=== PATIENT | male | born 1960 | race Caucasian/White ===

== ENCOUNTER → 2017-08-10 16:56 | Outpatient (CLI) | payer OTHER, SELFPAY ==
--- NOTE | 2017-08-10 | IMM_PTH ---
PATIENT: SHERIN CALDWELL LOC: [facility] U#:[id number] AGE/SX: 64/M ROOM: RE08/10/[address]: Dr. Bon Salazar MD : 1960 BED: DIS: SPEC #: [id number] RECD: 08/12/17 10:52 STATUS: YESSICA REOsmin #: [id number] ALFONSO: 08/10/17 00:[address]: Bon Salazar DEPT: IMMUNOHISTOCHEMISTRY RECD BY: Jana Mendoza ENTERED: 08/12/17 10:53 SP TYPE: IMMUNO OTHR DR: Dr. Alfonso Torres MD Tissues: A - PROSTATE RIGHT Procedures: P40 (add) 34BE12 (initial) PHYSICIAN & INSTITUTION [place] [address] SPECIMEN INFORMATION: Tissue Source: A - Right prostate, apex, core biopsy Clinical Info: Elevated PSA Specimen Number: [id number] CPT code: 78471, 03852 METHODOLOGY: Deparaffinized sections of prefer/formalin-fixed tissue or PAP/DQ stained slides are incubated with monoclonal/polyclonal antibodies/oligonucleotide probes. Localization is made via biotin free immunoperoxidase method. Appropriate controls are performed and reacted as expected. Results on target cell population are indicated in the following table: RESULTS: ANTIBODY / CLONE RESULT Block A P40 (BC28) positive 34BE12 (34BE12) positive These tests were developed and their performance characteristics determined by [facility]. They may not have been cleared or approved by the U.S. Food and Drug Administration. The FDA has determined that such clearance or approval is not necessary. INTERPRETATION: A. Right prostate, apex, core biopsy: Negative for malignancy. SJ:yuval 08/12/17
--- NOTE | 2017-08-10 08:00 | PROSBIL_PTH ---
PATIENT: SHERIN CALDWELL LOC: [facility] U#:[id number] AGE/SX: 64/M ROOM: RE08/10/[address]: Dr. Bon Salazar MD : 1960 BED: DIS: SPEC #: [id number] RECD: 08/11/17 11:01 STATUS: YESSICA JALIL #: [id number] ALFONSO: 08/10/17 08:[address]: Bon Salazar DEPT: SURGICAL PATHOLOGY RECD BY: Edwin Lilly ENTERED: 08/11/17 11:02 SP TYPE: PROST BX TATYANA DR: Dr. Alfonso Torres MD Tissues: A - PROSTATE RIGHT B - PROSTATE RIGHT C - PROSTATE RIGHT D - PROSTATE LEFT E - PROSTATE LEFT F - PROSTATE LEFT Procedures: PROSTATE BX HEADER OPERATION: Prostate biopsy PRE-OP DIAGNOSIS: Elevated PSA TISSUE SUBMITTED: A - Right apex, B - Right mid, C - Right base, D - Left apex, E - Left mid, F - Left base MICROSCOPIC DIAGNOSIS A. Right prostate, apex, core biopsy: Prostatic tissue, negative for malignancy. Focal chronic inflammation. See comment. B. Right prostate, mid, core biopsy: Prostatic tissue, negative for malignancy. Focal atrophy. C. Right prostate, base, core biopsy: Focal high-grade prostatic intraepithelial neoplasia (HGPIN). Focal mild acute and chronic inflammation. D. Left prostate, apex, core biopsy: Prostatic tissue, negative for malignancy. Focal atrophy. E. Left prostate, mid, core biopsy: Prostatic tissue, negative for malignancy. Focal atrophy and chronic inflammation. F. Left prostate, base, core biopsy: Prostatic tissue, negative for malignancy. Focal atrophy and chronic inflammation. SJ:yuval 08/12/17 COMMENT A. Immunohistochemistry ([id number]) supports the above diagnosis. Case has been reviewed in consultation with Dr. Curtis who concurs with the above diagnosis. IDC:AM MICROSCOPIC DESCRIPTION Slides are reviewed. GROSS DESCRIPTION A - Received is one container designated prostate, right apex. The specimen consists of two elongated fragments of light amaya-white soft tissue measuring 1.5 and 2 cm in length and 0.1 cm in diameter. The specimen is totally submitted in one cassette. B - Received is one container designated prostate, right mid. The specimen consists of two elongated fragments of light amaya-white soft tissue measuring 1.3 and 1.5 cm in length and 0.1 cm in diameter. The specimen is totally submitted in one cassette. C - Received is one container designated prostate, right base. The specimen consists of two elongated fragments of light amaya-white soft tissue each measuring 1.5 cm in length and 0.1 cm in diameter. The specimen is totally submitted in one cassette. D - Received is one container designated prostate, left apex. The specimen consists of two elongated fragments of light amaya-white soft tissue measuring 1 and 1.5 cm in length and 0.1 cm in diameter. The specimen is totally submitted in one cassette. E - Received is one container designated prostate, left mid. The specimen consists of two elongated fragments of light amaya-white soft tissue each measuring 2 cm in length and 0.1 cm in diameter. The specimen is totally submitted in one cassette. F - Received is one container designated prostate, left base. The specimen consists of two elongated fragments of light amaya-white soft tissue each measuring 1.5 cm in length and 0.1 cm in diameter. The specimen is totally submitted in one cassette. / SJ:rg 08/11/17 TC:5 CPT: 67309 x6
== END ==
PROVIDERS: Family Provider Internal Medicine; PCP Internal Medicine; Visit Provider Urology
DX: R97.20 Elevated prostate specific antigen [PSA] (principal)
CPT/HCPCS: 88305; 88341; 88342; G0416

== ENCOUNTER → 2018-02-22 06:21 | Outpatient (CLI) | payer OTHER, SELFPAY ==
[2018-02-22 07:24] LABS: PSA,Total- Diagnostic 3.17 ng/mL (0.0-4.0)
== END ==
PROVIDERS: Family Provider Internal Medicine; PCP Internal Medicine; Referring Provider Urology; Visit Provider Urology
DX: R97.20 Elevated prostate specific antigen [PSA] (principal)
CPT/HCPCS: 36415; 84153

== ENCOUNTER 2022-10-26 16:45 | Emergency (ER) | payer OTHER, SELFPAY ==
[2022-10-26] VITALS (8 sets, daily range): BP systolic 104–150; BP diastolic 60–89; PULSE 92–118; RESP 14–22; TEMP 36.7–39.4; O2SAT 96–98; BMI 37.6
--- NOTE | 2022-10-26 16:56 | NURSING ---
NO OLD EKGS
--- NOTE | 2022-10-26 17:05 | EKG12_ITS ---
Test Reason : CP/SOB Blood Pressure : / mmHG Vent. Rate : 105 BPM Atrial Rate : 105 BPM P-R Int : 186 ms QRS Dur : 080 ms QT Int : 316 ms P-R-T Axes : 041 054 063 degrees QTc Int : 417 ms Sinus tachycardia Low voltage QRS Borderline ECG Confirmed by RUDOLPH SUNSHINE, LINDSEY ([id number]), marketing editor GINO CRAIG ([id number]) on 10/27/2022 9:06:38 AM Referred By: DARREL Confirmed By:LINDSEY GALDAMEZ MD
--- NOTE | 2022-10-26 17:25 | EDS_ITS ---
HPI History of Present Illness Chief Complaint: Chest Pain Narrative Narrative: 62-year-old male presenting with chest pain and fever. He states that the chest pain started about 7 AM this morning. He states he was chilling and sweating all morning. He did not check a temperature. Chest pain has been intermittent. He thought that maybe it was his pinched nerve in his chest that he has been diagnosed with before. Patient also states he had a history of CAD and cardiac stents. He does not have a bad cough. No abdominal pain. No diarrhea or constipation. No new rashes. Patient does state that he has not urinated in 8 hours. PFS PFS Home Medications cetirizine 10 mg tablet (Zyrtec) 10 mg PO DAILY 10/26/22 [History Last Taken Unknown] insulin NPH isoph U-100 human 100 unit/mL subcutaneous cartridge 50 unit subcut BID 10/26/22 [History Last Taken Unknown] insulin lispro 100 unit/mL subcutaneous pen (Humalog KwikPen (U-100) Insulin) 6 unit subcut TID 10/26/22 [History Last Taken Unknown] losartan 25 mg tablet (Cozaar) 25 mg PO DAILY 10/26/22 [History Last Taken Unknown] metoprolol succinate 25 mg capsule sprinkle, ext. release 24 hr 25 mg PO DAILY 10/26/22 [History Last Taken Unknown] Allergy/AdvReac Type Severity Reaction Status Date / Time canagliflozin [From Invokana] Allergy Anaphylaxis Verified 10/26/22 18:56 clopidogrel [From Plavix] Allergy Rash Verified 10/26/22 18:56 Bdjgnzd-SOR-YwT Reductase Allergy Rash Verified 10/26/22 18:56 Inhibitor Sulfonylureas Allergy Rash Verified 10/26/22 18:56 Surgical History H/O prostatectomy Social History Smoking Status: Never smoker ROS ROS ED Constitutional Constitutional ED: Reports chills, fever(s) and subjective Eyes Eyes: Denies blurry vision ENT ENT ED: Denies rhinorrhea or sore throat Cardiovascular Cardiovascular: Reports chest pain and palpitations Respiratory/Chest Respiratory/Chest: Reports cough; Denies dyspnea Gastrointestinal Gastrointestinal: Reports nausea; Denies abdominal pain or vomiting Genitourinary Genitourinary ED: Denies dysuria or hematuria Musculoskeletal Musculoskeletal: Denies arthralgias Integumentary Denies abscess Neurologic Neurologic: Reports headache(s); Denies paresthesias or weakness Psychiatric Psychiatric: Denies anxiety or depression EXAM Physical Exam Const Vital Signs: 10/26/22 16:46 10/26/22 16:50 10/26/22 17:50 Temperature 103 F H 102.5 F H 102.4 F H Temperature Source Oral Temporal Temporal Pulse Rate 107 H 118 H 113 H Respiratory Rate 16 16 14 Respiratory Effort Respiratory Pattern Blood Pressure 150/66 H 110/87 H 108/86 H Blood Pressure Mean 94 94 93 Pulse Ox 98 97 98 Oxygen Delivery Method Room Air Room Air Room Air 10/26/22 18:50 10/26/22 17:05 10/26/22 18:00 Temperature 102.3 F H Temperature Source Temporal Pulse Rate 109 H Respiratory Rate 16 Respiratory Effort Normal Non-Labored Respiratory Pattern Normal Blood Pressure 105/89 H Blood Pressure Mean 94 Pulse Ox 97 97 Oxygen Delivery Method Room Air Room Air 10/26/22 20:57 10/26/22 22:42 Temperature 98.0 F 98.5 F Temperature Source Temporal Temporal Pulse Rate 106 H 92 Respiratory Rate 22 H 20 H Respiratory Effort Respiratory Pattern Blood Pressure 122/63 H 118/70 Blood Pressure Mean 82 86 Pulse Ox 96 96 Oxygen Delivery Method Room Air Room Air Positive well nourished General Appearance ED: NAD HEENT Reports TM's clear and moist mucous membranes normocephalic Tympanic Membrane ED: Yes TM's clear Eyes PERRL and EOMs intact bilaterally Chest Wall inspection of chest normal and palpation of chest normal Resp normal respiratory effort and clear to auscultation bilaterally Auscultation: Negative for rales, rhonchi or wheezes Cardio regular rhythm Rate: tachycardic GI normal to inspection, nondistended, normoactive bowel sounds Back/Spine no CVA tenderness Neuro oriented x3 and CN's II-XII intact bilaterally Sensorium / Orientation: awake and alert Motor Exam: strength 5/5 throughout Psych mental status grossly normal Skin no rashes or lesions noted Heart Score History: Slightly/Non-Suspicious ECG: Normal Age: >45 - <65 years Risk Factors: >/= 3 Risk Factors or History of CAD Troponin: </= Normal Limit Score: 3 MDM MDM MDM Narrative Medical decision making narrative: Patient presenting with chest pain and fever. Temperature was 103 ?F on arrival. He is given Tylenol. Sepsis work-up was pursued. CBC showed a leukocytosis of 18.0. Hemoglobin hematocrit are stable. Platelets are normal. PT/INR normal. D-dimer is negative. CMP shows normal liver function, renal function. Glucose is 195 without anion gap. Electrolytes are normal. High- sensitivity troponin is 3 and the patient has been having chest pain since 7 in the morning 7 to 8 hours of chest pain with a negative troponin so I do not think that is cardiac. Lactic acid came back at 3.2. Patient was given 3 L of IV fluids. Urinalysis was negative. At this point I have SIRS criteria but no source. After discussion with the patient and his family we will obtain a CT of the chest abdomen pelvis with contrast. This was performed and I had found no acute findings. Patient's vital signs have improved. His blood pressure is 118/70, heart rate 92, temperature 98.5. He was covered with vancomycin and Zosyn. Family requested transfer as he is a [employer] employee and it would be very expensive to stay at [facility]. I did speak with a Dr. Villarreal from [facility] who is willing to accept the patient. They feel to be able to get him over there within the next few hours. I did give him a dose of ibuprofen and he was put on a rate of 125 an hour. I sent a viral respiratory panel as well. Requested some food so he was given dinner. Patient will be transferred in stable condition. Impression: 1. SIRS 2. Fever of unknown origin 3. Chest pain Lab Data Attestation: I reviewed the patient's lab results. Labs: Laboratory Results - last 24 hr 10/26/22 10/26/22 10/26/22 18:08 18:08 18:08 WBC 18.0 H RBC 5.21 Hgb 15.4 Hct 44.9 MCV 86.2 MCH 29.6 MCHC 34.3 RDW Std Deviation 41.4 RDW Coeff of Carole 13.3 Plt Count 180 MPV 9.2 Immature Gran % (Auto) 0.800 Neut % (Auto) 87.7 H Lymph % (Auto) 2.3 L [place] % (Auto) 8.5 Eos % (Auto) 0.5 Baso % (Auto) 0.2 Absolute Neuts (auto) 15.8 H Absolute Lymphs (auto) 0.42 L Nucleated RBC % 0 Differential Comment SCANNED PT 13.6 INR 1.0 APTT 29.8 D-Dimer Quant (PE/DVT) 0.32 Sodium 135 L Potassium 4.2 Chloride 102 Carbon Dioxide 24.0 Anion Gap 9 BUN 19 H Creatinine 1.15 Est GFR (MDRD) Af Amer 82 Est GFR (MDRD) Non-Af 68 BUN/Creatinine Ratio 16.5 Glucose 195 H Lactic Acid Calcium 9.5 Total Bilirubin 0.70 AST 29 ALT 46 Alkaline Phosphatase 52 Troponin I High Sens 3 Total Protein 7.9 Albumin 4.1 Globulin 3.8 Albumin/Globulin Ratio 1.1 Urine Color Urine Clarity Urine pH Ur Specific Maynard Urine Protein Urine Glucose (UA) Urine Ketones Urine Occult Blood Urine Nitrite Urine Bilirubin Urine Urobilinogen Ur Leukocyte Esterase Urine RBC Urine WBC Ur Squamous Epith Cells Urine Bacteria Urine Mucus POC Glucose 10/26/22 10/26/22 10/26/22 18:08 18:44 19:30 WBC RBC Hgb Hct MCV MCH MCHC RDW Std Deviation RDW Coeff of Carole Plt Count MPV Immature Gran % (Auto) Neut % (Auto) Lymph % (Auto) [place] % (Auto) Eos % (Auto) Baso % (Auto) Absolute Neuts (auto) Absolute Lymphs (auto) Nucleated RBC % Differential Comment PT INR APTT D-Dimer Quant (PE/DVT) Sodium Potassium Chloride Carbon Dioxide Anion Gap BUN Creatinine Est GFR (MDRD) Af Amer Est GFR (MDRD) Non-Af BUN/Creatinine Ratio Glucose Lactic Acid 3.2 H* Calcium Total Bilirubin AST ALT Alkaline Phosphatase Troponin I High Sens Total Protein Albumin Globulin Albumin/Globulin Ratio Urine Color Yellow Urine Clarity Clear Urine pH 8.0 Ur Specific Maynard 1.010 Urine Protein 15 H Urine Glucose (UA) 1000 H Urine Ketones 50 H Urine Occult Blood Negative Urine Nitrite Negative Urine Bilirubin Negative Urine Urobilinogen 1 H Ur Leukocyte Esterase Negative Urine RBC 0 SEEN Urine WBC 0 SEEN Ur Squamous Epith Cells 0 SEEN Urine Bacteria 0 SEEN Urine Mucus 0 SEEN POC Glucose 186 H Radiography Diagnostic Testing: Clinical Impression(s) from Imaging Studies Chest X-Ray 10/26/22 17:25 IMPRESSION: Degenerative changes, as described above. No demonstrated acute cardiopulmonary process. Electronically Signed: Ck Del Cid DO at 17:39 EDT Reading Location ID and State: [facility] / [place] Tel [phone], Service support , Chest/Abdomen/Pelvis CT 10/26/22 19:54 IMPRESSION: 1. No acute cardiopulmonary abnormality. 2. Hepatic steatosis. 3. Small left renal cyst. This requires no follow-up. 4. Degenerative changes of the lumbar spine. Electronically Signed: Ck Del Cid DO at 20:36 EDT Reading Location ID and State: [facility] / [place] Tel [phone], Service support , Discharge Plan Triage Chief Complaint: Chest Pain ED Provider: Michael Mills Dx/Rx/DC Orders Prescriptions: No Action cetirizine [Zyrtec] 10 mg Tablet 10 mg PO DAILY losartan [Cozaar] 25 mg Tablet 25 mg PO DAILY insulin lispro [Humalog KwikPen Insulin] 100 unit/mL Insulin Pen 6 unit SUBCUT TID Humulin N NPH U-100 Insulin 100 unit/mL Cartridge 50 unit SUBCUT BID metoprolol succinate 25 mg Capsule,Sprinkle,Er 24hr 25 mg PO DAILY Primary Care Provider: Alfonso Torres Referrals: Alfonso Torres MD [Primary Care Provider] -
--- NOTE | 2022-10-26 17:25 | RAD_ITS ---
STUDY: X-RAY CHEST REASON FOR EXAM: Male, 62 years old. Fever. TECHNIQUE: Single AP portable view of the chest. COMPARISON: None. FINDINGS: The lungs are clear and expanded. There is no demonstrated pleural abnormality. Normal size heart. Normal mediastinum and heaven. Normal visualized pulmonary arteries. Normal visualized aortic arch and descending thoracic aorta. There are diffuse degenerative changes of the visualized thoracic spine. Evidence of anterior fusion of the lower cervical spine. Normal visualized ribs, clavicles, and shoulders. There is no demonstrated abnormality of the visualized soft tissue structures of the upper abdomen. RAD/Chest 1 View (Portable) IMPRESSION: Degenerative changes, as described above. No demonstrated acute cardiopulmonary process. Electronically Signed: Ck Del Cid DO at 17:39 EDT ,
[2022-10-26 18:24] LABS: Absolute Lymphocyte Count 0.42 X10^3/uL (0.83-4.51); Absolute Neutrophil Count 15.8 X10^3/uL (2.0-7.7); Basophil# 0.03 X10^3/uL; Basophil% 0.2 % (0-1); Eosinophil# 0.09 X10^3/uL; Eosinophils% 0.5 % (0-5); Hematocrit 44.9 % (40-54); Hemoglobin 15.4 g/dL (13.0-16.5); Lymphocyte # 0.42 X10^3/ul (0.83-4.51); Lymphocyte % 2.3 % (19-41); Mean Corp Hgb Conc 34.3 g/dL (32-36); Mean Corpuscular Hgb 29.6 pg (27.0-32.0); Mean Corpuscular Volume 86.2 fL (80-94); Mean Platelet Vol. 9.2 fl (6.2-12.0); Monocyte# 1.53 X10^3/uL; Monocyte% 8.5 % (0-10); NRBC Flagged by Analyzer 0 % (0-5); Neutrophil # 15.75 X10^3/uL (2.7-7.7); Neutrophil % 87.7 % (47-70); POSITIVE DIFFERENTIAL YES; Platelet Count 180 K/mm3 (150-450); RBC Distribution Width CV 13.3 % (11.6-14.6); RBC Distribution Width SD 41.4 fl (35.1-43.9); Red Blood Count 5.21 M/mm3 (4.6-6.2)
[2022-10-26 18:27] LABS: Differential Indicated SCAN CRITERIA MET
[2022-10-26 18:33] LABS: Prothrombin Time (Protime)PT. 13.6 SECONDS (11.7-14.9)
[2022-10-26 18:34] LABS: Partial Thromboplast Time 29.8 Seconds (24.1-36.2)
[2022-10-26 18:45] LABS: ALB/GLOB Ratio 1.1 RATIO (0.9-2.4); AST(SGOT) 29 U/L (15-37); Alanine Aminotransfer ALT/SGPT 46 U/L (16-61); Albumin, Serum 4.1 g/dL (3.2-5.0); Alkaline Phosphatase 52 U/L (45-117); Anion Gap 9 (5-15); BUN 19 mg/dL (7-18); BUN/Creat Ratio 16.5 RATIO (10-20); Calcium,Total 9.5 mg/dL (8.5-10.1); Chloride 102 mmol/L (98-107); Creatinine, Serum 1.15 mg/dL (0.70-1.30); D-Dimer Quantitative (DVT/PE) 0.32 FEU/ug/m (0.27-0.49); EST Glomerular Filtration Rate 68 mL/min (>60); Est Glom Filt Rate - Afr Amer 82 mL/min (>60); Globulin 3.8 g/dL (2.2-4.2); Glucose 195 mg/dL (74-106); Potassium 4.2 mmol/L (3.5-5.1); Protein, Total 7.9 g/dL (6.4-8.2); Sodium Level 135 mmol/L (136-145); Troponin-I HS 3 pg/mL (3.0-78.0)
[2022-10-26 18:47] LABS: Differential Comment SCANNED
[2022-10-26] MEDS: Ondansetron 4 MG/2 ML Vial IV (18:57)
[2022-10-26] MEDS: Acetaminophen 500 MG Tablet 1000 MG PO (18:57)
[2022-10-26] MEDS: 0.9% Normal Saline 1,000 ML 999 ML IV ×3 (18:57→20:30)
[2022-10-26 18:58] LABS: Lactic Acid 3.2 mmol/L (0.4-1.9)
[2022-10-26 19:21] LABS: Bedside Glucose 186 mg/dL (74-106)
[2022-10-26 19:38] LABS: Bacteria 0 SEEN /hpf (None Seen); Mucous, Urine 0 SEEN /hpf (<or=2+); Red Blood Cells-Urine 0 SEEN /hpf (0-5); Squamous Epithelial Cells - UA 0 SEEN /hpf (0-5); White Blood Cells 0 SEEN /hpf (0-5)
[2022-10-26 19:39] LABS: Color, Urine Yellow (Yellow); Glucose, Dipstick 1000 mg/dl (Normal); Ketone-Dipstick 50 mg/dl (Negative); Leukocyte Esterase-Dipstick Negative /ul (Negative); Nitrite-Dipstick Negative (Negative); Occult Blood-Urine Negative /ul (Negative); Protein-Dipstick 15 mg/dl (Negative); Urine Bilirubin Dipstick Negative (Negative); Urine Clarity Clear (Clear); Urine Urobilinogen 1 mg/dl (Normal)
--- NOTE | 2022-10-26 19:54 | CT_ITS ---
STUDY: CT CHEST, ABDOMEN T PELVIS WITH CONTRAST REASON FOR EXAM: Male, 62 years old. Chest pain for 2 months. Now with fever. RADIATION DOSAGE (If Supplied By Facility): CTDIvol = ( 21.09 ) mGy, DLP = ( 2364.01 ) mGycm TECHNIQUE: Transaxial imaging was performed following intravenous administration of IV 100mL Isovue-300. Multiplanar coronal and sagittal images were reformatted. Individualized dose optimization techniques were used for this CT. COMPARISON: Chest, October 26, 2022. FINDINGS: CHEST The lungs are normal. There is no demonstrated pleural abnormality. Normal heart and pericardium. Coronary artery calcifications. Nonspecific subcentimeter mediastinal lymphadenopathy. Normal hilar regions. Normal unenhanced pulmonary arteries. Normal aorta arch and descending thoracic aorta. Normal osseous structures. ABDOMEN Hepatic steatosis. Normal gallbladder and extrahepatic biliary system. Normal spleen. Normal pancreas. Normal bilateral adrenal glands. Normal right kidney. Subcentimeter upper pole left renal cyst. Normal bilateral ureters. Normal visualized stomach. Normal small intestine. Normal colon. The appendix is visualized and appears normal. There is diffuse atherosclerotic calcification of the abdominal aorta with elongation and tortuosity, but without a demonstrated aneurysm. Normal inferior vena cava. Normal retroperitoneum. PELVIS Normal urinary bladder. Normal prostate. Normal seminal vesicles. There is no pelvic fluid. There is no pelvic lymphadenopathy or mass lesion. No free air within the abdominal cavity. Normal visualized pelvic arteries. Normal abdominal wall. There are diffuse degenerative changes of the visualized lumbar spine. CT/CT Chest, Abd, Pel w/Contrast IMPRESSION: 1. No acute cardiopulmonary abnormality. 2. Hepatic steatosis. 3. Small left renal cyst. This requires no follow-up. 4. Degenerative changes of the lumbar spine. Electronically Signed: Ck Del Cid DO at 20:36 EDT Reading Location ID and State: [facility] / [place] Tel [phone], Service support ,
[2022-10-26 22:15] LABS: Reflex Lactate? Y
[2022-10-26] MEDS: Ibuprofen 600 MG Tablet PO (22:51)
[2022-10-26] MEDS: 0.9% Normal Saline 1,000 ML 125 ML IV (22:52)
[2022-10-26 23:14] LABS: Lactic Acid 2.4 mmol/L (0.4-1.9)
[2022-10-27 00:03] VITALS: BP 106/71; PULSE 95; RESP 18; TEMP 37.1; O2SAT 96
== END 2022-10-27 00:53 | disposition short-term general hospital (02) ==
LOC: ED 17:43
PROVIDERS: Emergency Provider Student in an Organized Health Care Education/Training Program; PCP Internal Medicine; Visit Provider Student in an Organized Health Care Education/Training Program
DX: R07.9 Chest pain, unspecified (principal); R65.10 Systemic inflammatory response syndrome (SIRS) of non-infectious origin without acute organ dysfunction; Z79.4 Long term (current) use of insulin; R50.9 Fever, unspecified; I25.10 Atherosclerotic heart disease of native coronary artery without angina pectoris; Z95.5 Presence of coronary angioplasty implant and graft; Z79.899 Other long term (current) drug therapy; K76.0 Fatty (change of) liver, not elsewhere classified
CPT/HCPCS: 71045; 71260; 74177; 80053; 81001; 82962; 83605; 84484; 85025; 85379; 85610; 85730; 87040; 87086; 87149; 87186; 87428; 87633; 93005; 96361; 96365; 96366; 96367; 96375; 99285; J7030; J7040; P9612; Q9967; A4216; J2405